=== PATIENT | male | born 1940 ===

== ENCOUNTER 2017-12-09 12:04 | Inpatient (IN) | payer OTHER ==
[~2017-12-09] VITALS: Ht 190.5 cm; Wt 84.0 kg
--- NOTE | 2017-12-09 12:40 | ED SKIN/ALLERGY COMPLAINT ---
History of Present Illness General Chief Complaint: Skin Rash/ Abcess Stated Complaint: CARLOS HAS RASH ALL OVER BODY Source: patient Exam Limitations: no limitations Vital Signs & Intake/Output Vital Signs & Intake/Output Vital Signs Date Time Temp Pulse Resp B/P B/P Pulse O2 O2 Flow FiO2 Mean Ox Delivery Rate 12/09 1540 64 15 135/81 95 Room Air Room Air 12/09 1228 98.7 78 15 104/70 94 Room Air Room Air Allergies Coded Allergies: Sulfa (Sulfonamide Antibiotics) (NICOLE Kelley 12/09/17) Reconcile Medications Allopurinol 100 MG TABLET 1 TAB PO QPM GOUT (Reported) Amlodipine Besylate 5 MG TABLET 1 TAB PO DAILY HEART (Reported) Aspirin (Aspirin*) 81 MG TAB.CHEW 1 TAB PO DAILY HEART HEALTH (Reported) Atenolol 50 MG TABLET 1 TAB PO DAILY HEART (Reported) Cephalexin 500 MG CAPSULE 1 CAP PO BID ANTIBIOTIC, INFECTION (Reported) Folic Acid 1 MG TABLET 1 TAB PO DAILY VITAMIN SUPPORT (Reported) Furosemide (Lasix) 80 MG TABLET 2 TAB PO DAILY WATER RETENTION (Reported) Gabapentin 300 MG CAPSULE 1 CAP PO DAILY NEUROPATHY (Reported) Gabapentin 300 MG CAPSULE 2 CAP PO QPM NEUROPATHY (Reported) Glimepiride (Amaryl) 1 MG TABLET 1 TAB PO DAILY DIABETES (Reported) Lovastatin 20 MG TABLET 1 TAB PO DAILY CHOLESTEROL (Reported) Magnesium Oxide 400 MG TABLET 1 TAB PO BID SUPPLEMENT (Reported) Multivit-Min/FA/Lycopen/Lutein (Centrum Silver Men Tablet) 300 MCG-600 MCG-300 MCG TABLET 1 TAB PO DAILY VITAMIN SUPPORT (Reported) Omeprazole 40 MG CAPSULE.DR 1 CAP PO QPM GI (Reported) Potassium Chloride 10 MEQ TAB.ER.PRT 1 TAB PO DAILY SUPPLEMENT (Reported) Temazepam 30 MG CAPSULE 1 CAP PO QPM SLEEP (Reported) Triage Note: PT TO ED FOR FULL BODY RASH X A COUPLE OF DAYS. WAS GIVEN KEFLEX AND A SALVE WITHOUT RELIEF. REDNESS AND RAISED BUMPS TO FULL BODY. DENIES NEW SOAPS, DETERGENT, ETC. Triage Nurses Notes Reviewed? yes Onset: Gradual Duration: getting worse Timing: recent history Severity: moderate Severity Numbers: 5 HPI: Patient is a 77-year-old male with a past medical history of hypertension hyperlipidemia, peripheral neuropathy, CKD who presents emergency room with concerns of a 3 week history that began in his right lower leg were the rash began to expand on his foot and up his legs in the past week the rash has now worsened to his entire body where he is complaining itching and irritation to his torso region however he states that due to his peripheral neuropathy he has no symptoms of itching or pain. Patient was given Keflex earlier this week with no improvement of symptoms. Denies any fever chills tongue swelling lip swelling difficulty breathing swallowing or cough. (Duarte Patel) Past History Travel History Traveled to [place] past 21 day No Medical History Any Pertinent Medical History? see below for history Neurological: NEUROPATHY Cardiovascular: hypertension, hyperlipidemia, ?PVD Respiratory: NONE Gastrointestinal: GERD Hepatic: NONE Renal: NONE Musculoskeletal: NONE Blood Disorders: NONE Cancer(s): NONE Surgical History Surgical History: non-contributory Psychosocial History What is your primary language Mosotho Tobacco Use: Quit >30 days ago Family History Hx Contributory? No (Duarte Patel) Review of Systems Review of Systems Constitutional: Reports: no symptoms. EENTM: Reports: no symptoms. Respiratory: Reports: no symptoms. Cardiovascular: Reports: no symptoms. GI: Reports: no symptoms. Genitourinary: Reports: no symptoms. Musculoskeletal: Reports: no symptoms. Skin: Reports: see HPI, rash. Neurological/Psychological: Reports: no symptoms. Hematologic/Endocrine: Reports: no symptoms. Immunologic/Allergic: Reports: no symptoms. All Other Systems: Reviewed and Negative (Duarte Patel) Physical Exam Physical Exam General Appearance: no apparent distress, alert, comfortable Head: atraumatic Eyes: Bilateral: normal appearance, PERRL, EOMI. Ears, Nose, Throat: normal pharynx, normal ENT inspection Respiratory: normal breath sounds, chest non-tender Cardiovascular: regular rate/rhythm Gastrointestinal: normal bowel sounds, non-tender Extremities: normal range of motion, no edema Skin: intact Lymphatic: no anterior cervical celio Diagram Body: 1) Noted circumferential mildly raised erythematous warm rash 2) Noted scattered erythematous maculopapule rash to patient's extremities and torso (Duarte Patel) Progress Differential Diagnosis: abscess/cellulitis, allergic reaction, anaphylaxis, angioedema, contact dermatitis, drug reaction, erythema multiforme, lyme disease , meningitis/sepsis, piyriasis rosea, RMSF, scarlet fever, shingles, syphilis/ gonococcemia, urticaria Plan of Care: Orders Procedure Date/time Status CBC WITHOUT DIFFERENTIAL 12/10 06 Active BASIC ELECTROLYTES PLUS BUN&CR 12/10 06 Active Heart Healthy Diet 12/09 D Active US-RENAL/KIDNEY 12/09 1529 Active CULTURE,URINE 12/09 1529 Active URINE LYTES, SPOT 12/09 1529 Active URINALYSIS 12/09 1529 Active Pathway - chart 12/09 1514 Active Vital Signs 12/09 1514 Active Intake & Output 12/09 1514 Active Intake & Output 12/09 1438 Active ED Holding Orders 12/09 1416 Active Admit to inpatient 12/09 1416 Active Vital Signs 12/09 1416 Active Code Status 12/09 1416 Active Patient Data 12/09 1412 Active Add-on Test (ER Only) 12/09 1355 Active BLOOD CULTURE 12/09 1343 Active EKG 12/09 1343 Active LACTIC ACID 12/09 1251 Active WESTERGREN SED RATE 12/09 1240 Complete C-REACTIVE PROTEIN 12/09 1240 Active CBC WITHOUT DIFFERENTIAL 12/09 1240 Complete BASIC METABOLIC PANEL 12/09 1240 Active House Staff 12/09 UNK Active Lab Add-on Test 12/09 UNK Active Current Medications Sig/Chucky Start time Last Medication Dose Stop Time Status Admin Amlodipine Besylate 5 MG DAILY 12/10 09 AC (Norvasc) Aspirin 81 MG DAILY 12/10 09 AC (Aspirin) Atenolol 50 MG DAILY 12/10 09 AC (Tenormin) Folic Acid 1 MG DAILY 12/10 09 AC (Folic Acid) Gabapentin 300 MG DAILY 12/10 09 AC (Neurontin) Potassium Chloride 10 MEQ DAILY 12/10 09 AC (K-Dur) Omeprazole 40 MG DAILY AC 12/10 07 AC (Prilosec) Heparin Sodium 5,000 UNIT Q8 12/09 2199 UNVr (Porcine) Allopurinol 100 MG QPM 12/09 2099 AC (Zyloprim) Gabapentin 600 MG QPM 12/09 2099 AC (Neurontin) Magnesium Oxide 400 MG BID 12/09 2099 AC (Mag-Ox) Atorvastatin Calcium 5 MG 1700 12/09 1700 AC (Lipitor) Diphenhydramine HCl 1 ABEL DAILY 12/09 1530 AC (Benadryl) Temazepam 15 MG AT BEDTIME NEED.. 12/09 1530 AC (Restoril) Acetaminophen 650 MG Q6P PRN 12/09 1515 AC (Tylenol) Acetaminophen 1,000 MG Q6 PRN 12/09 1515 AC (Ofirmev) Sodium Chloride 1,000 ML Q13H 12/09 1515 AC (Normal Saline 0.9%) Laboratory Tests 12/09/17 1251: Anion Gap 15, Estimated GFR 13 L, BUN/Creatinine Ratio 15.3, Glucose 197 H, Lactic Acid Pending, Calcium 9.0, C-Reactive Prot, Quant 4.8 H, CBC w Diff MAN DIFF ORDERED, RBC 4.30 L, MCV 97.1 H, MCH 32.1 H, MCHC 33.0, RDW 14.9 H, MPV 8.9, Gran % 88.4 H, Lymphocytes % 4.8 L, Monocytes % 1.5 L, Eosinophils % 5.3 H, Basophils % 0, Absolute Granulocytes 18.4 H, Segmented Neutrophils 79 H, Band Neutrophils 7 H, Absolute Lymphocytes 1.0 L, Lymphocytes 5 L, Monocytes 2, Absolute Monocytes 0.3, Eosinophils 7 H, Absolute Eosinophils 1.1, Absolute Basophils 0, Platelet Estimate ADEQUATE, Normocytic RBCs VERIFIED, Normochromic RBCs VERIFIED, ESR Westergren 41 H Microbiology 12/09 1529 URINE ROUT: Urine Culture - ORD 12/09 1459 BLOOD: Blood Culture - RECD 12/09 1447 BLOOD: Blood Culture - RECD Differential diagnosis includes lupus vasculitis On initial examination patient shows no signs of anaphylaxis or angioedema patient was complaining of mild itching irritation to torso region where the rash is where it was initial concern of allergic reaction patient was given prednisone initially however labs indicate the patient has a 20,000 white blood cell count bandemia and renal failure, is noted through patient's old records that his baseline creatinine function is approximately 3. Discussed admission with patient who agrees and has no questions patient was given IV fluids and prophylactic antibiotics Initial ED EKG: normal QRS complex, normal sinus rhythm, 66 BPM, NSR (Duarte Patel) ED Sepsis Exam Date of Focused Sepsis Exam: 12/09/17 Time of Focused Sepsis Exam: 1407 Sepsis Cardiac Exam: Regular Rate/Rhythm Sepsis Resp Exam: CTA Sepsis Cap Refill Exam: <2 Sec Sepsis Peripheral Pulse Exam: Normal Sepsis Peripheral Pulse Location: Radial Sepsis Skin Color Exam: RASH NOTED Skin Temp/Moisture Exam: Warm/Dry (Duarte Patel) Departure Departure Disposition: STILL A PATIENT Condition: Stable Clinical Impression Primary Impression: Acute on chronic renal failure Secondary Impressions: Allergic reaction, Bandemia, Sepsis, Skin rash Departure Forms: Customer Survey General Discharge Information Admission Note Spoke With: Klaus Vazquez MD Documentation of Exam: Documentation of any treatments & extenuating circumstances including Concerns Regarding Discharge (functional status, medication knowledge or non-compliance, living conditions, etc.) that warrant an admission rather than observation: [ Patient requires IV fluids kidney ultrasound nephrology consultation and infectious disease consultation IV antibiotics blood cultures pending repeat labs ] (Duarte Patel) PA/PHOTOENGRAVING PROOFER Co-Sign Statement Statement: ED Attending supervision documentation- [X] I saw and evaluated the patient. I have also reviewed all the pertinent lab results and diagnostic results. I agree with the findings and the plan of care as documented in the PA's/PHOTOENGRAVING PROOFER's documentation. [X] I have reviewed the ED Record and agree with the PA's/PHOTOENGRAVING PROOFER's documentation. [] Additions or exceptions (if any) to the PAs/PHOTOENGRAVING PROOFER's note and plan are summarized below: [Patient found to have a vasculitic rash and is also an acute on chronic renal failure. Unsure if this is a penicillin rash or vasculitis. Patient will need admission to the hospital, IV fluids, renal consultation, biopsy] (Jignesh CHATMAN,Marito Vail) Critical Care Note Critical Care Note Critical Care Time: 30-74 min (Duarte Patel)
[2017-12-09 13:11] LABS: ABSOLUTE BASOPHIL COUNT 0 /CUMM (0.0-0.2); ABSOLUTE EOSINOPHIL COUNT 1.1 /CUMM (0.0-0.7); ABSOLUTE GRANULOCYTE CT 18.4 /CUMM (1.4-6.5); ABSOLUTE MONOCYTE COUNT 0.3 /CUMM (0.10-0.60); BASOPHIL % 0 % (0.0-2.0); EOSINOPHIL % 5.3 % (0-5); GRANULOCYTE % 88.4 % (42.2-75.2); HEMATOCRIT 41.7 % (42-52); MEAN CORPUSCULAR HGB 32.1 PG (27.0-31.0); MEAN CORPUSCULAR VOLUME 97.1 FL (80.0-94.0); MEAN PLATELET VOLUME 8.9 FL (7.4-10.4); PLATELET COUNT 191 /CUMM (130-400); RBC DISTRIBUTION WIDTH 14.9 % (11.5-14.5); WHITE BLOOD CELL COUNT 20.8 /CUMM (4.8-10.8)
--- NOTE | 2017-12-09 14:21 | History & Physical ---
Farshad Almonte 12/09/17 1421: General Information and HPI MD Statement: I have seen and personally examined MAGALY SAWYER and documented this H&P. The patient is a 77 year old M who presented with a patient stated chief complaint of rash, and incedental finding of NEVAEH. Source of Information: patient, old records History of Present Illness: 77 year old male with PMH of htn, hld, gout, peripheral neuropathy and CKD presents to the ED for lower extremity rash now extending onto torso of duration one month, and on laboratory testing found to have acute on chronic kidney disease. The patient says the rash started on his right lower extremity, and has subsequently spread up to his back/torso, and is also no bilateral on his lower extremity. The rash on his lower extremities is unfelt due to peripheral neuropathy, but the patient states that the rash on his torso and back is pruritic. Patient denies chills, fevers, weight loss, night sweats, SOB, chest pain, difficulty breathing, abdominal pain, or changes in bowel or bladder habits. No exposures to new soaps, detergents, or insects that the patient is aware of. The patient was given Keflex earlier this week with no improvement of symptoms. Allergies/Medications Allergies: Coded Allergies: Sulfa (Sulfonamide Antibiotics) (NICOLE Kelley 12/09/17) Home Med list Allopurinol 100 MG TABLET 1 TAB PO QPM GOUT (Reported) Amlodipine Besylate 5 MG TABLET 1 TAB PO DAILY HEART (Reported) Aspirin (Aspirin*) 81 MG TAB.CHEW 1 TAB PO DAILY HEART HEALTH (Reported) Atenolol 50 MG TABLET 1 TAB PO DAILY HEART (Reported) Cephalexin 500 MG CAPSULE 1 CAP PO BID ANTIBIOTIC, INFECTION (Reported) Folic Acid 1 MG TABLET 1 TAB PO DAILY VITAMIN SUPPORT (Reported) Furosemide (Lasix) 80 MG TABLET 2 TAB PO DAILY WATER RETENTION (Reported) Gabapentin 300 MG CAPSULE 1 CAP PO DAILY NEUROPATHY (Reported) Gabapentin 300 MG CAPSULE 2 CAP PO QPM NEUROPATHY (Reported) Glimepiride (Amaryl) 1 MG TABLET 1 TAB PO DAILY DIABETES (Reported) Lovastatin 20 MG TABLET 1 TAB PO DAILY CHOLESTEROL (Reported) Magnesium Oxide 400 MG TABLET 1 TAB PO BID SUPPLEMENT (Reported) Multivit-Min/FA/Lycopen/Lutein (Centrum Silver Men Tablet) 300 MCG-600 MCG-300 MCG TABLET 1 TAB PO DAILY VITAMIN SUPPORT (Reported) Omeprazole 40 MG CAPSULE.DR 1 CAP PO QPM GI (Reported) Potassium Chloride 10 MEQ TAB.ER.PRT 1 TAB PO DAILY SUPPLEMENT (Reported) Temazepam 30 MG CAPSULE 1 CAP PO QPM SLEEP (Reported) Compliance With Home Meds: GOOD (stated by patient) Past History Travel History Traveled to [place] past 21 day No Medical History Neurological: NEUROPATHY Cardiovascular: hypertension, hyperlipidemia, ?PVD Respiratory: NONE Gastrointestinal: GERD Hepatic: NONE Renal: NONE Musculoskeletal: gout Blood Disorders: NONE Cancer(s): NONE Surgical History Surgical History: non-contributory Past Family/Social History Family History Relations & Conditions if any *No pertinent family history Relation not specified Psychosocial History Where do you live? Home Primary Language: Occitan Smoking Status: Former Smoker ETOH Use: denies use (former) Review of Systems Review of Systems Constitutional: Denies: chills, diaphoresis, fever, malaise, weakness, unexplained weight loss. EENTM: Reports: no symptoms. Cardiovascular: Reports: no symptoms. Respiratory: Denies: orthopnea, short of breath, sputum production, stridor, wheezing. GI: Reports: no symptoms. Genitourinary: Reports: no symptoms. Musculoskeletal: Reports: no symptoms. Skin: Reports: see HPI. Neurological/Psychological: Reports: no symptoms. Hematologic/Endocrine: Reports: no symptoms. Immunologic/Allergic: Reports: see HPI. Exam & Diagnostic Data Last 24 Hrs of Vital Signs/I&O Vital Signs Date Time Temp Pulse Resp B/P B/P Pulse O2 O2 Flow FiO2 Mean Ox Delivery Rate 12/09 1650 98.5 64 18 120/76 92 12/09 1540 64 15 135/81 95 Room Air Room Air 12/09 1228 98.7 78 15 104/70 94 Room Air Room Air Intake & Output 12/09 1600 12/09 0800 12/09 0000 Intake Total 0 Output Total Balance 0 Intake, Oral 0 Physical Exam General Appearance Alert, Oriented X3, Cooperative, No Acute Distress Skin dry, erythematous, raised rash on lower extremities, specifically below knee. punctate red lesions ascending up to back and abdomen, not as thickly spaced as on lower extremities Skin Temp/Moisture Exam: Warm/Dry HEENT Atraumatic, PERRLA, EOMI Neck Supple, No JVD, No thryomegaly Lymphatic Axillary nl, Cervical nl Cardiovascular Regular Rate, Normal S1, Normal S2, No Murmurs Lungs Clear to Auscultation, Normal Air Movement Abdomen Soft, No Tenderness, No Hepatospenomegaly Neurological Normal Speech, Strength at 5/5 X4 Ext, Normal Tone, Sensation Intact Extremities No Clubbing, No Cyanosis, No Edema, scaly erythematous rash on lower extremities Vascular Normal Pulses Last 24 Hrs of Labs/Jovi: Laboratory Tests 12/09/171929: Ur Random Creatinine 59.0, Ur Random Sodium 65, Ur Random Potassium 37.8, Fraction Sodium Excret 3.3 H 12/09/17 1815: Lactic Acid 1.8 12/09/17 1529: Urine Color YEL, Urine Clarity CLEAR, Urine pH 6.0, Ur Specific [place] 1.015, Urine Protein 30 H, Urine Ketones NEG, Urine Nitrite NEG, Urine Bilirubin NEG, Urine Urobilinogen 0.2, Ur Leukocyte Esterase TRACE H, Ur Microscopic SEDIMENT EXAMINED, Urine RBC 3-5, Urine WBC 1-3 H, Ur Epithelial Cells FEW, Urine Bacteria FEW H, Urine Hemoglobin TRACE-INTACT H, Urine Glucose NEG 12/09/17 1251: Anion Gap 15, Estimated GFR 13 L, BUN/Creatinine Ratio 15.3, Glucose 197 H, Hemoglobin A1c Pending, Lactic Acid 3.1 H, Calcium 9.0, Phosphorus 4.3, Magnesium 2.8 H, Total Bilirubin 0.4, Direct Bilirubin 0.2, AST 33, ALT 30, Alkaline Phosphatase 50, C-Reactive Prot, Quant 4.8 H, Total Protein 7.3, Albumin 4.0, CBC w Diff MAN DIFF ORDERED, RBC 4.30 L, MCV 97.1 H, MCH 32.1 H, MCHC 33.0, RDW 14.9 H, MPV 8.9, Gran % 88.4 H, Lymphocytes % 4.8 L, Monocytes % 1.5 L, Eosinophils % 5.3 H, Basophils % 0, Absolute Granulocytes 18.4 H, Segmented Neutrophils 79 H, Band Neutrophils 7 H, Absolute Lymphocytes 1.0 L, Lymphocytes 5 L, Monocytes 2, Absolute Monocytes 0.3, Eosinophils 7 H, Absolute Eosinophils 1.1, Absolute Basophils 0, Platelet Estimate ADEQUATE, Normocytic RBCs VERIFIED, Normochromic RBCs VERIFIED, ESR Westergren 41 H Microbiology 12/09 1929 URINE ROUT: Urine Culture - RECD 12/09 1459 BLOOD: Blood Culture - RECD 12/09 1447 BLOOD: Blood Culture - RECD Diagnostic Data EKG Results Sinus rhythm Other Results SERVICE DATE: 12/09/17 EXAM TYPE: US - US-RENAL/KIDNEY IMPRESSION: Small right kidney. No hydronephrosis in either kidney. Renal cortical thickness and echogenicity are normal. 3.0 cm indeterminant hypoechoic lesion in the upper pole the right kidney which could represent a solid mass or complex cyst. Recommend further evaluation with renal mass protocol CT or MRI if renal function allows. Otherwise recommend a follow-up ultrasound in 6 months. Assessment/Plan Assessment: 89-year-old male with past medical history as above comes with generalized rash most pronounced on lower extremities and elevated creatinine suggestive of acute on chronic kidney disease. Patient is admitted to inpatient medical service for rationing KI with broad differential vasculitis, drug reaction, and doubtful cellulitis. Nephrology has been consulted. Send urine electrolytes, renal ultrasound, UA, obtain pancultures admit monitor clinically off antibiotics. Consider ID consult if no improvement. Resume home meds except those which are known to cause drug-induced reactions. Problem list/plan: HPI on CKD stage III secondary to dehydration/infection Leukocytosis, likely reactive Lactic acidosis Chronic medical conditions DVT prophylaxis: Subcu heparin and leg squeeze Heart healthy diet Patient is full code As Ranked By This Provider Problem List: 1. Acute on chronic renal failure 2. Skin rash Core Measures/Misc (02/06) Acute Coronary Syndrome ACS Diagnosis: No Congestive Heart Failure Congestive Heart Failure Diagnosis No Cerebrovascular Accident CVA/TIA Diagnosis: No VTE (View Protocol) VTE Risk Factors Age>40 No Mechanical VTE Prophylaxis d/t N/A MechProphylax Ordered No VTE Pharm Prophylaxis d/t NA PharmProphylax ordered Sepsis (View protocol) Sepsis Present: No If YES complete Sepsis Event Note If YES complete Sepsis Event Note TaylorKlaus 12/09/17 1502: Core Measures/Misc (02/06) Sepsis (View protocol) If YES complete Sepsis Event Note If YES complete Sepsis Event Note Attending MD Review Statement Attending Statement Attending MD Statement: examined this patient, discuss w/resident/PA/MOLD OPERATOR, agreed w/resident/PA/MOLD OPERATOR, discussed with family, reviewed EMR data (avail), discussed with nursing, discussed with case mgmt, reviewed images, amended to note Attending Assessment/Plan: 77 o/m with pmh as above comes with generalised rash and elevated creatinine. Patient c/o itching and is afebrile, Leukocytosis of WBC 20K with bandemia. Patient is admitted to inpatient medical services for rash and NEVAEH with broad differential of vasculitis, drug reaction and doubtful cellulitis. Start IVF, provide supprotive care for rash, 1 dose of steroid if needed. Nephrology consult. Send urine lytes, Renal USG, UA. Obtain pancultures and monitor clinically off antibiotics. Consider ID consult if no improvement. Resume home meds except which are known to cause drug induced reactions. RISS and titrate insulin as needed. gi/dvt prophyalxis full code. SonyMandy Anatoly 12/09/17 1514: Core Measures/Misc (02/06) Sepsis (View protocol) If YES complete Sepsis Event Note If YES complete Sepsis Event Note Resident Review Statement Resident Statement: examined this patient, discussed with university intern, agreed with university intern, discussed with family, reviewed EMR data (avail), discussed with nursing , discussed with case mgmt, reviewed images, amended to note Other Findings: Mr. Sawyer s a 77yo M w/ PMH of CKD stage 3 baseline Cr 3.0 from old record, Gout, peripheral neuropathy, HTN, HLD presented to ER w/ CC of skin rash x >1 week started spotty on BLE and gradually intensified and spread upwards to his whole body. Patient tried outpatient salve from his doctor however no relief. He felt minimal itchiness due to his underlying peripheral neuropathy. During our clinical interaction, patient denied recent travel/sick contacts, fever/lightheadedness/diaphoresis/night sweat/weight change/cough/SOB/Chest Pain /Palpitation/Abdominal pain/bowel movement or urinary abnormality, or other skin /musculoskeletal/neurological/mood disorders, or dietary/appetite change. -Smoking: Denied -Alcohol: non-alcoholic beer -Rec Drugs: denied On admission, Vitals: stable afebrile, BP 104/70, 94% RA Physical exam -Gen.: AO x3, cooperative, no distress, -HEENT: NCAT, PERRL, EOMI, anicteric sclera, moist mucous membranes -Skin: Bilateral BLEs and upper thigh/torso/back scattered erythematous maculopapule rash -Neck: Supple, no JVD, trachea midline, mild accessory respiratory muscle use -Cardio: Normal S1/S2 without significant murmurs/gallops/rubs -Pulmonary: grossly normal air movement w/ clear auscultation -Abdomen: Soft, nontender, nondistended, bowel sounds intact -Neuro: Awake and alert, cranial nerves II through XII grossly intact -Extremity: Normal pulses/capillary refill, no cyanosis/clubbing/edema -CBC: Leukocytosis 20.8, H/H 50.8/41.7, MCV 97, PLT 191, elevated CRP 4.8 -BMP: K5.3, NA 143, CR 4.3 with no baseline urinalysis to -EKG: NSR w/o significant ST-T abnormalities. -Last Echo: none in system -Interventions in ER: Prednisone 60 x 1, NS bolus x 1, Unasyn 3gm x 1 Problem list/Assessment/Hospital Course: #NEVAEH on CKD stage 3 2/2 dehydration/infection #Leukocytosis, likely reactive #Lactic acidosis, w/o SIRS/source of infection #asymptomatic Hyperkalemia w/o EKG change, 2/2 renal insufficiency #PMH of CKD stage 3, Gout, peripheral neuropathy, HTN, HLD - Admit to General Medicine - Vitals per protocol, monitor I&O per protocol. - Continuous IVF w/ bolus x 1 and then 150cc/hr - Continue home meds, except holding Lasix and oral hypoglycemics. - Restart lasix per nephrology - pending nephrology consult in the AM - Patient had been afebrile over the past week with the rash. No signs of infection/toxic symptoms. Received 1 dose of unasyn in ER. Would monitor off ABx. - would start Topical benadryl cream for skin itchiness. - Pending blood/urine cultures - Renal U/S to rule out obstructions. - Pain per pathway. DVT prophylaxis Pharm PPX + ALPS Heart Healthy Diet IV Access: Peripheral IV Full Code
[2017-12-09] MEDS ORDERED: AMARYL1 M1 PO (14:26)
[2017-12-09] MEDS ORDERED: AMLODIPINE BESYL5 M1 PO (14:27)
[2017-12-09] MEDS ORDERED: ATENOLOL50 M1 PO (14:27)
[2017-12-09] MEDS ORDERED: FOLIC ACID1 M1 PO (14:27)
[2017-12-09] MEDS ORDERED: LASIX80 M1 PO (14:28)
[2017-12-09] MEDS ORDERED: CENTRUM SILVER1 EAC4 PO (14:28)
[2017-12-09] MEDS ORDERED: GABAPENTIN300 M2 PO ×2 (14:29→14:30)
[2017-12-09] MEDS ORDERED: MAGNESIUM OXID400 M1 PO (14:29)
[2017-12-09] MEDS ORDERED: POTASSIUM CHLO10 ME5 PO (14:29)
[2017-12-09] MEDS ORDERED: LOVASTATIN20 M1 PO (14:30)
[2017-12-09] MEDS ORDERED: ALLOPURINOL100 M1 PO (14:30)
[2017-12-09] MEDS ORDERED: OMEPRAZOLE40 M1 PO (14:31)
[2017-12-09] MEDS ORDERED: ASPIRIN81 M4 PO (14:31)
[2017-12-09] MEDS ORDERED: TEMAZEPAM30 M1 PO (14:31)
[2017-12-09] MEDS ORDERED: CEPHALEXIN500 M3 PO (14:32)
--- NOTE | 2017-12-09 16:48 | ULTRASOUND REPORT ---
EXAMINATION: US RETROPERITONEAL COMPLETE (RENAL) CLINICAL INFORMATION: Acute kidney injury on chronic kidney disease. COMPARISON: None TECHNIQUE: Real-time imaging of the kidneys and bladder. FINDINGS: RIGHT KIDNEY: 9.4 x 4.4 x 4.5 cm (SAG x AP x TRV). The kidney is small. The cortex is normal in thickness and echogenicity. There is a hypoechoic lesion measuring 3.0 x 2.4 x 2.6 cm which is avascular and could represent a solid mass versus a complex cyst. This will require further evaluation. No hydronephrosis. LEFT KIDNEY: 11.5 x 5.7 x 4.4 cm (SAG x AP x TRV). The kidney is normal in size. The cortex is normal in thickness and echogenicity. There are multiple small simple cysts. No hydronephrosis. BLADDER: Well-distended and normal. Bilateral ureteral jets are demonstrated. Prevoid bladder volume is 207 mL. Postvoid bladder volume was not obtained as the patient was sleeping. The prostate measures 3.2 x 3.4 x 4.2 cm. IMPRESSION: Small right kidney. No hydronephrosis in either kidney. Renal cortical thickness and echogenicity are normal. 3.0 cm indeterminant hypoechoic lesion in the upper pole the right kidney which could represent a solid mass or complex cyst. Recommend further evaluation with renal mass protocol CT or MRI if renal function allows. Otherwise recommend a follow-up ultrasound in 6 months.
[2017-12-09 16:50] VITALS: BP 120/76
--- NOTE | 2017-12-09 21:31 | Cons- Nephrology ---
General Information and HPI Consulting Request Date of Consult: 12/09/17 Requested By: Klaus Vazquez MD Reason for Consult: NEVAEH Source of Information: patient Exam Limitations: poor historian History of Present Illness: The patient is a 77-year-old man with past medical history most significant for reported COPD with a baseline creatinine approximately 2 or 3, hypertension, diabetes, gout, unclear hematologic diagnosis who presents with a rash. The patient is not a great historian. He sees a [employer] special agent Dr. Goldberg. He is not sure exactly why his kidney disease. In fact, he didn't even know that he had diabetes and totally pointed out that he was on glimepiride. He thinks that his creatinine may be 2 but it has been reported that may be 3. He is coming in because of a rash started earlier this month. Clarke on his right lower extremity. It is not painful. He had no systemic symptoms. He went to see his physician earlier this week who prescribed cephalexin. Yesterday, he noticed a rash develop on his chest and back which is itchy. The rash on his legs has not gotten any better. As result, he came into the emergency room. As part of his workup, he has found to have a creatinine 4.3, with blood cell count 20.8 with 5.3% eosinophils. Urinalysis with 30mg per deciliter protein, 3 -5 red blood cells and 1-3 white blood cells. Renal ultrasound without any hydronephrosis. He was given IV fluid, Unasyn, 60 mg prednisone. Note that the patient denies any NSAID use or difficulties urinating. He does not remember ever being told that he had hematuria or proteinuria in the past. Allergies/Medications Allergies: Coded Allergies: Sulfa (Sulfonamide Antibiotics) (Allie NICOLE 12/09/17) Home Med List: Allopurinol 100 MG TABLET 1 TAB PO QPM GOUT (Reported) Amlodipine Besylate 5 MG TABLET 1 TAB PO DAILY HEART (Reported) Aspirin (Aspirin*) 81 MG TAB.CHEW 1 TAB PO DAILY HEART HEALTH (Reported) Atenolol 50 MG TABLET 1 TAB PO DAILY HEART (Reported) Cephalexin 500 MG CAPSULE 1 CAP PO BID ANTIBIOTIC, INFECTION (Reported) Folic Acid 1 MG TABLET 1 TAB PO DAILY VITAMIN SUPPORT (Reported) Furosemide (Lasix) 80 MG TABLET 2 TAB PO DAILY WATER RETENTION (Reported) Gabapentin 300 MG CAPSULE 1 CAP PO DAILY NEUROPATHY (Reported) Gabapentin 300 MG CAPSULE 2 CAP PO QPM NEUROPATHY (Reported) Glimepiride (Amaryl) 1 MG TABLET 1 TAB PO DAILY DIABETES (Reported) Lovastatin 20 MG TABLET 1 TAB PO DAILY CHOLESTEROL (Reported) Magnesium Oxide 400 MG TABLET 1 TAB PO BID SUPPLEMENT (Reported) Multivit-Min/FA/Lycopen/Lutein (Centrum Silver Men Tablet) 300 MCG-600 MCG-300 MCG TABLET 1 TAB PO DAILY VITAMIN SUPPORT (Reported) Omeprazole 40 MG CAPSULE.DR 1 CAP PO QPM GI (Reported) Potassium Chloride 10 MEQ TAB.ER.PRT 1 TAB PO DAILY SUPPLEMENT (Reported) Temazepam 30 MG CAPSULE 1 CAP PO QPM SLEEP (Reported) Current Medications: Current Medications Sig/Chucky Start time Last Medication Dose Route Stop Time Status Admin Acetaminophen 650 MG Q6P PRN 12/09 1515 AC PO Acetaminophen 1,000 MG Q6 PRN 12/09 1515 AC IV Allopurinol 100 MG QPM 12/09 2100 AC PO Amlodipine Besylate 5 MG DAILY 12/10 09 AC PO Ampicillin Sodium/ 0 .STK-MED ONE 12/09 1454 DC Sulbactam Sodium .ROUTE Ampicillin Sodium/ 3,000 MG ONCE ONE 12/09 1430 DC 12/09 Sulbactam Sodium IV 12/09 1459 1508 Sodium Chloride 100 ML Aspirin 81 MG DAILY 12/10 0900 AC PO Atenolol 50 MG DAILY 12/10 0900 AC PO Atorvastatin Calcium 5 MG 1700 12/09 1700 AC 12/09 PO 1833 Diphenhydramine HCl 1 ABEL DAILY 12/09 1530 AC TOP Folic Acid 1 MG DAILY 12/10 0900 AC PO Gabapentin 300 MG DAILY 12/10 0900 AC PO Gabapentin 600 MG QPM 12/09 2100 AC PO Heparin Sodium 5,000 UNIT Q8 12/09 2200 AC (Porcine) SC Magnesium Oxide 400 MG BID 12/09 2100 AC PO Omeprazole 40 MG DAILY AC 12/10 07 AC PO Potassium Chloride 10 MEQ DAILY 12/10 0900 AC PO Prednisone 0 .STK-MED ONE 12/09 1247 DC PO Prednisone 0 .STK-MED ONE 12/09 1247 DC PO Prednisone 60 MG ONCE ONE 12/09 1245 DC 12/09 PO 12/09 1246 1244 Sodium Chloride 1,000 ML Q13H 12/09 1515 AC 12/09 IV 1832 Sodium Chloride 1,000 ML BOLUS ONE 12/09 1415 DC 12/09 IV 12/09 1514 1502 Temazepam 15 MG AT BEDTIME NEED.. 12/09 1530 AC PO Review of Systems Review of Systems: Complete 14 point ROS neg except as per HPI Past History Travel History Traveled to [place] past 21 day No Medical History Blood Transfusion Hx: No Neurological: NEUROPATHY EENT: allergies, cataracts Cardiovascular: hypertension, hyperlipidemia, ?PVD Respiratory: NONE Gastrointestinal: GERD Hepatic: NONE Renal: NONE Musculoskeletal: NONE Psychiatric: NONE Endocrine: NONE Blood Disorders: NONE Cancer(s): NONE Surgical History Surgical History: non-contributory Psychosocial History Where Do You Live? Home Smoking Status: Former Smoker Exam & Diagnostic Data Vital Signs and I&O Vital Signs Date Time Temp Pulse Resp B/P B/P Pulse O2 O2 Flow FiO2 Mean Ox Delivery Rate 12/09 1650 98.5 64 18 120/76 92 12/09 1540 64 15 135/81 95 Room Air Room Air 12/09 1228 98.7 78 15 104/70 94 Room Air Room Air Intake & Output 12/09 1600 12/09 0400 12/08 1600 12/08 0400 12/07 1600 12/07 0400 Intake Total 0 Output Total Balance 0 Intake, Oral 0 Physical Exam: Gen - NAD Head - NCAT Eyes - anicteric sclera, EOMI Neck - supple, no LAD CV - RRR, no m/r/g Chest - clear, no w/r/r Abd - soft, NTND Upper ext - warm, no edema Lower ext - warm, no edema Skin - purpuric rash on shins, "allergic" appearing rash on chest/back Neuro - AOX3, grossly nonfocal Results Pertinent Lab Results: Laboratory Tests 12/09 12/09 12/09 1930 1815 1529 Chemistry Lactic Acid (0.7 - 2.1 mmol/L) 1.8 Urines Urine Color (YEL,AMB,STR) YEL Urine Clarity (CLEAR) CLEAR Urine pH (5.0 - 8.0) 6.0 Ur Specific [place] (1.001 - 1.035) 1.015 Urine Protein (NEG,<30 MG/DL) 30 H Urine Ketones (NEG) NEG Urine Nitrite (NEG) NEG Urine Bilirubin (NEG) NEG Urine Urobilinogen (0.1 - 1.0 EU/dl) 0.2 Ur Leukocyte Esterase (NEG) TRACE H Ur Microscopic SEDIMENT EXAMINED Urine RBC (0 - 5 /HPF) 3-5 Urine WBC (0 - 2 /HPF) 1-3 H Ur Epithelial Cells (NONE,FEW) FEW Urine Bacteria (NEG/NONE) FEW H Urine Hemoglobin (NEG) TRACE-INTACT H Ur Random Creatinine (mg/dL) 59.0 Ur Random Sodium (30 - 90 mmol/L) 65 Ur Random Potassium (mmol/L) 37.8 Fraction Sodium Excret (<1% %) 3.3 H Urine Glucose (N MG/DL) NEG 12/09 1251 Chemistry Sodium (137 - 145 mmol/L) 143 Potassium (3.5 - 5.1 mmol/L) 5.3 H Chloride (98 - 107 mmol/L) 102 Carbon Dioxide (22 - 30 mmol/L) 26 Anion Gap (5 - 16) 15 BUN (9 - 20 mg/dL) 66 H Creatinine (0.7 - 1.2 mg/dL) 4.3 H Estimated GFR (>60 ml/min) 13 L BUN/Creatinine Ratio (7 - 25 %) 15.3 Glucose (65 - 99 mg/dL) 197 H Hemoglobin A1c (4.2 - 5.8 %) Pending Lactic Acid (0.7 - 2.1 mmol/L) 3.1 H Calcium (8.4 - 10.2 mg/dL) 9.0 Phosphorus (2.5 - 4.5 mg/dL) 4.3 Magnesium (1.6 - 2.3 mg/dL) 2.8 H Total Bilirubin (0.2 - 1.3 mg/dL) 0.4 Direct Bilirubin (< 0.4 mg/dL) 0.2 AST (17 - 59 U/L) 33 ALT (21 - 72 U/L) 30 Alkaline Phosphatase (< 127 U/L) 50 C-Reactive Prot, Quant (<1.0 mg/dL) 4.8 H Total Protein (6.3 - 8.2 g/dL) 7.3 Albumin (3.5 - 5.0 g/dL) 4.0 Hematology CBC w Diff MAN DIFF ORDERED WBC (4.8 - 10.8 /CUMM) 20.8 H RBC (4.70 - 6.10 /CUMM) 4.30 L Hgb (14.0 - 18.0 G/DL) 13.8 L Hct (42 - 52 %) 41.7 L MCV (80.0 - 94.0 FL) 97.1 H MCH (27.0 - 31.0 PG) 32.1 H MCHC (33.0 - 37.0 G/DL) 33.0 RDW (11.5 - 14.5 %) 14.9 H Plt Count (130 - 400 /CUMM) 191 MPV (7.4 - 10.4 FL) 8.9 Gran % (42.2 - 75.2 %) 88.4 H Lymphocytes % (20.5 - 51.1 %) 4.8 L Monocytes % (1.7 - 9.3 %) 1.5 L Eosinophils % (0 - 5 %) 5.3 H Basophils % (0.0 - 2.0 %) 0 Absolute Granulocytes (1.4 - 6.5 /CUMM) 18.4 H Segmented Neutrophils (42.2 - 75.2 %) 79 H Band Neutrophils (0.0 - 5.0 %) 7 H Absolute Lymphocytes (1.2 - 3.4 /CUMM) 1.0 L Lymphocytes (20.5 - 51.1 %) 5 L Monocytes (1.7 - 9.3 %) 2 Absolute Monocytes (0.10 - 0.60 /CUMM) 0.3 Eosinophils (0 - 5.0 %) 7 H Absolute Eosinophils (0.0 - 0.7 /CUMM) 1.1 Absolute Basophils (0.0 - 0.2 /CUMM) 0 Platelet Estimate (ADEQUATE) ADEQUATE Normocytic RBCs VERIFIED Normochromic RBCs VERIFIED ESR Westergren (0 - 10 MM) 41 H Imaging/Other Studies: EXAM TYPE: US - US-RENAL/KIDNEY EXAMINATION: US RETROPERITONEAL COMPLETE (RENAL) CLINICAL INFORMATION: Acute kidney injury on chronic kidney disease. COMPARISON: None TECHNIQUE: Real-time imaging of the kidneys and bladder. FINDINGS: RIGHT KIDNEY: 9.4 x 4.4 x 4.5 cm (SAG x AP x TRV). The kidney is small. The cortex is normal in thickness and echogenicity. There is a hypoechoic lesion measuring 3.0 x 2.4 x 2.6 cm which is avascular and could represent a solid mass versus a complex cyst. This will require further evaluation. No hydronephrosis. LEFT KIDNEY: 11.5 x 5.7 x 4.4 cm (SAG x AP x TRV). The kidney is normal in size. The cortex is normal in thickness and echogenicity. There are multiple small simple cysts. No hydronephrosis. BLADDER: Well-distended and normal. Bilateral ureteral jets are demonstrated. Prevoid bladder volume is 207 mL. Postvoid bladder volume was not obtained as the patient was sleeping. The prostate measures 3.2 x 3.4 x 4.2 cm. IMPRESSION: Small right kidney. No hydronephrosis in either kidney. Renal cortical thickness and echogenicity are normal. 3.0 cm indeterminant hypoechoic lesion in the upper pole the right kidney which could represent a solid mass or complex cyst. Recommend further evaluation with renal mass protocol CT or MRI if renal function allows. Otherwise recommend a follow-up ultrasound in 6 months. Assessment/Plan Assessment/Recommendations Assessment: NEVAEH - Cause not entirely clear. DDx includes IgA vasculitis given rash on legs c/w HSP, acute interstitial nephritis given allergic appearing rash on chest/ back. That being said, UA not overly impressive for protein and/or cells. Does not appear pre-renal (FENa not low either) and no evidence of urinary obstruction. No clear insult that I can tell which may have led to ATN. Has received steroids for the rash which I feel should be continued. Tissue diagnosis (skin would be easiest - also, he is on aspirin so cannot receive a kidney biopsy for at least 5-7 days) would be helpful. CKD - Risk factors of HTN, DM but patient is terrible historian and unable to get a gauge as to how severe either of these have been. Not clear whether or not he actually has a history of vasculitis. Leukocytosis - Should note that he had seen a block cableman in the past - unclear if this was why. Recommendations: -Uprot, UCr -Hold allopurinol -Would label Cephalexin as allergy (and hold med) -Need to touch base with PCP, Materials Engineer to get collateral information -Would hold ASA in case kidney biopsy pursued -Would tentatively plan for skin biopsy next week -Cont prednisone 60mg daily for now Dr. Chi to see tomorrow Please call [phone] with ?'s
[2017-12-09 22:49] VITALS: BP 116/70
[2017-12-10 06:57] VITALS: BP 110/50
--- NOTE | 2017-12-10 07:38 | PN- Housestaff ---
See Addendum Subjective Follow-up For: Rash and incidentally found NEVAEH Complaints: no complaints Subjective: Patient was seen and examined at the bedside. Patient had no acute events overnight, complained only of the light keeping him awake. Patient was very conversant today, and told many stories. States that he is hopeful that a resolution to this problem can be found soon. Review of Systems Constitutional: Reports: no symptoms, see HPI. Objective Last 24 Hrs of Vital Signs/I&O Vital Signs Date Time Temp Pulse Resp B/P B/P Pulse O2 O2 Flow FiO2 Mean Ox Delivery Rate 12/10 0657 98.0 64 18 110/50 94 12/09 2249 99.0 64 18 116/70 94 12/09 1650 98.5 64 18 120/76 92 12/09 1540 64 15 135/81 95 Room Air Room Air 12/09 1228 98.7 78 15 104/70 94 Room Air Room Air Intake & Output 12/10 0800 12/10 0000 12/09 1600 Intake Total 400 0 Output Total Balance 400 0 Intake, IV 300 Intake, Oral 100 0 Patient 185 lb 195 lb Weight Physical Exam General Appearance: Alert, Oriented X3, Cooperative, No Acute Distress Skin: dry, erythematous, raised rash on lower extremities, specifically below knees.punctate red lesions ascending up to back and abdomen,not as thickly spaced as on lower extremities Skin Temp/Moisture Exam: Warm/Dry HEENT: Atraumatic, PERRLA, EOMI Neck: Supple, No JVD, No thryomegaly Lymphatic: Axillary nl, Cervical nl Cardiovascular: Regular Rate, Normal S1, Normal S2, No Murmurs Lungs: Clear to Auscultation, Normal Air Movement Abdomen: Normal Bowel Sounds, Soft, No Tenderness, No Hepatospenomegaly Neurological: Normal Speech, Strength at 5/5 X4 Ext, Normal Tone, Sensation Intact Extremities: No Clubbing, No Cyanosis, No Edema, Normal Pulses Vascular: Normal Pulses, Pulses Symmetrical Current Medications: Current Medications Sig/Chucky Start time Last Medication Dose Route Stop Time Status Admin Acetaminophen 650 MG Q6P PRN 12/09 1515 AC PO Acetaminophen 1,000 MG Q6 PRN 12/09 1515 AC IV Allopurinol 100 MG QPM 12/09 2100 AC 12/09 PO 2142 Amlodipine Besylate 5 MG DAILY 12/10 0900 AC PO Ampicillin Sodium/ 0 .STK-MED ONE 12/09 1454 DC Sulbactam Sodium .ROUTE Ampicillin Sodium/ 3,000 MG ONCE ONE 12/09 1430 DC 12/09 Sulbactam Sodium IV 12/09 1459 1508 Sodium Chloride 100 ML Aspirin 81 MG DAILY 12/10 0900 AC PO Atenolol 50 MG DAILY 12/10 0900 AC PO Atorvastatin Calcium 5 MG 1700 12/09 1700 AC 12/09 PO 1833 Diphenhydramine HCl 1 ABEL DAILY 12/09 1530 AC 12/09 TOP 2142 Folic Acid 1 MG DAILY 12/10 0900 AC PO Gabapentin 300 MG DAILY 12/10 09 AC PO Gabapentin 600 MG QPM 12/09 2100 AC 12/09 PO 2142 Heparin Sodium 5,000 UNIT Q8 12/09 2200 AC 12/10 (Porcine) SC 0524 Magnesium Oxide 400 MG BID 12/09 2100 AC 12/09 PO 2142 Omeprazole 40 MG DAILY AC 12/10 0700 AC 12/10 PO 0524 Potassium Chloride 10 MEQ DAILY 12/10 0900 AC PO Prednisone 0 .STK-MED ONE 12/09 1247 DC PO Prednisone 0 .STK-MED ONE 12/09 1247 DC PO Prednisone 60 MG ONCE ONE 12/09 1245 DC 12/09 PO 12/09 1246 1244 Sodium Chloride 1,000 ML Q13H 12/09 1515 AC 12/10 IV 0525 Sodium Chloride 1,000 ML BOLUS ONE 12/09 1415 DC 12/09 IV 12/09 1514 1502 Temazepam 15 MG AT BEDTIME NEED.. 12/09 1530 AC PO Last 24 Hrs of Lab/Jovi Results Last 24 Hrs of Labs/Mics: Laboratory Tests 12/10/17 0657: Sodium Pending, Potassium Pending, Chloride Pending, Carbon Dioxide Pending, Anion Gap Pending, BUN Pending, Creatinine Pending, BUN/Creatinine Ratio Pending , CBC w Diff Pending, WBC Pending, RBC Pending, Hgb Pending, Hct Pending, MCV Pending, MCH Pending, MCHC Pending, RDW Pending, Plt Count Pending, MPV Pending 12/09/17 1930: Ur Random Creatinine 59.0, Ur Random Sodium 65, Ur Random Potassium 37.8, Fraction Sodium Excret 3.3 H 12/09/17 1815: Lactic Acid 1.8 12/09/17 1529: Urine Color YEL, Urine Clarity CLEAR, Urine pH 6.0, Ur Specific [place] 1.015, Urine Protein 30 H, Urine Ketones NEG, Urine Nitrite NEG, Urine Bilirubin NEG, Urine Urobilinogen 0.2, Ur Leukocyte Esterase TRACE H, Ur Microscopic SEDIMENT EXAMINED, Urine RBC 3-5, Urine WBC 1-3 H, Ur Epithelial Cells FEW, Urine Bacteria FEW H, Urine Hemoglobin TRACE-INTACT H, Urine Glucose NEG 12/09/17 1251: Anion Gap 15, Estimated GFR 13 L, BUN/Creatinine Ratio 15.3, Glucose 197 H, Hemoglobin A1c Pending, Lactic Acid 3.1 H, Calcium 9.0, Phosphorus 4.3, Magnesium 2.8 H, Total Bilirubin 0.4, Direct Bilirubin 0.2, AST 33, ALT 30, Alkaline Phosphatase 50, C-Reactive Prot, Quant 4.8 H, Total Protein 7.3, Albumin 4.0, CBC w Diff MAN DIFF ORDERED, RBC 4.30 L, MCV 97.1 H, MCH 32.1 H, MCHC 33.0, RDW 14.9 H, MPV 8.9, Gran % 88.4 H, Lymphocytes % 4.8 L, Monocytes % 1.5 L, Eosinophils % 5.3 H, Basophils % 0, Absolute Granulocytes 18.4 H, Segmented Neutrophils 79 H, Band Neutrophils 7 H, Absolute Lymphocytes 1.0 L, Lymphocytes 5 L, Monocytes 2, Absolute Monocytes 0.3, Eosinophils 7 H, Absolute Eosinophils 1.1, Absolute Basophils 0, Platelet Estimate ADEQUATE, Normocytic RBCs VERIFIED, Normochromic RBCs VERIFIED, ESR Westergren 41 H Microbiology 12/09 1930 URINE ROUT: Urine Culture - RECD 12/09 1459 BLOOD: Blood Culture - RECD 12/09 1447 BLOOD: Blood Culture - RECD Orders EKG Findings: Sinus rhythm Radiology Findings: SERVICE DATE: 12/09/17-1528 EXAM TYPE: US - US-RENAL/KIDNEY IMPRESSION: Small right kidney. No hydronephrosis in either kidney. Renal cortical thickness and echogenicity are normal. 3.0 cm indeterminant hypoechoic lesion in the upper pole the right kidney which could represent a solid mass or complex cyst. Recommend further evaluation with renal mass protocol CT or MRI if renal function allows. Otherwise recommend a follow-up ultrasound in 6 months. Assessment/Plan Assessment: 77-year-old male with past medical history as above comes with generalized rash most pronounced on lower extremities and elevated creatinine suggestive of acute on chronic kidney disease. Patient is admitted to inpatient medical service for rationing KI with broad differential vasculitis, drug reaction, and doubtful cellulitis. Nephrology has been consulted. Send urine electrolytes, renal ultrasound, UA, obtain pancultures admit monitor clinically off antibiotics. Consider ID consult if no improvement. Resume home meds except those which are known to cause drug-induced reactions. Problem list/plan: HPI on CKD stage III secondary to dehydration/infection presence of hypoechoic space Leukocytosis, likely reactive Lactic acidosis Chronic medical conditions DVT prophylaxis: Subcu heparin and leg squeeze Heart healthy diet Patient is full code Problem List: 1. Skin rash 2. Acute on chronic renal failure Pain Ratin Pain Location: none Pain Goal: Remain pain free Pain Plan: none in place Tomorrow's Labs & Rationales: none planned at this time
--- NOTE | 2017-12-10 07:39 | Patient Discharge Instructions ---
Discharge Instructions General Discharge Information Special Instructions: - Please follow up with your primary care physician within 1-2 weeks of discharge. Inform your primary care physician of this admission to [facility]. - Continue your current medications per discharge instructions. - Please watch for these problems: Fever, Chills, Nausea, Vomiting, Shortness of Breath, Productive Cough, Chest Pain/Discomfort, Abdominal Pain, Active Bleeding or Bloody urine/stool. Diet Continue normal diet: Yes Acute Coronary Syndrome Inclusion Criteria At DC or during hospital stay patient has or had the following: ACS DIAGNOSIS No Discharge Core Measures Meds if any: Prescribed or Continued at Discharge Meds if any: NOT Prescribed or Continued at Discharge Congestive Heart Failure Inclusion Criteria At DC or during hospital stay patient has or had the following: CHF DIAGNOSIS No Discharge Core Measures Meds if any: Prescribed or Continued at Discharge Meds if any: NOT Prescribed or Continued at Discharge Cerebrovascular accident Inclusion Criteria At DC or during hospital stay patient has or had the following: CVA/TIA Diagnosis No Discharge Core Measures Meds if any: Prescribed or Continued at Discharge Meds if any: NOT Prescribed or Continued at Discharge Venous thromboembolism Inclusion Criteria VTE Diagnosis No VTE Type NONE VTE Confirmed by (Test) NONE Discharge Core Measures - Per Current guidelines, there needs to be overlap - treatment for the first 5 days of Warfarin therapy. - If discharged on Warfarin prior to 5 days of - overlap therapy, the patient will need to be - assessed for post discharge needs including - *Post discharge parental anticoagulation - *Warfarin and/or parental anticoagulation education - *Follow up date to check INR post discharge At least 5 days overlap therapy as Inpatient No Meds if any: Prescribed or Continued at Discharge Note: Overlap Therapy is Warfarin and Anticoagulant Meds if any: NOT Prescribed or Continued at Discharge
[2017-12-10 08:35] LABS: ABSOLUTE BASOPHIL COUNT 0 /CUMM (0.0-0.2); ABSOLUTE LYMPH COUNT 1.2 /CUMM (1.2-3.4); ABSOLUTE MONOCYTE COUNT 0.9 /CUMM (0.10-0.60); BASOPHIL % 0.1 % (0.0-2.0); EOSINOPHIL % 5.9 % (0-5); GRANULOCYTE % 81.7 % (42.2-75.2); HEMATOCRIT 36.9 % (42-52); MEAN CORPUSCULAR HGB 32.3 PG (27.0-31.0); MEAN CORPUSCULAR HGB CONC 33.5 G/DL (33.0-37.0); MEAN CORPUSCULAR VOLUME 96.5 FL (80.0-94.0); MEAN PLATELET VOLUME 9.7 FL (7.4-10.4); PLATELET COUNT 164 /CUMM (130-400); RBC DISTRIBUTION WIDTH 14.9 % (11.5-14.5); RED BLOOD CELL CT 3.82 /CUMM (4.70-6.10); WHITE BLOOD CELL COUNT 17.2 /CUMM (4.8-10.8)
--- NOTE | 2017-12-10 11:17 | PN- Nephrology ---
Assessment/Plan Nephrology Assessment: 1. 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 Can't r/o background recent GN (? IgA, SLE, or vasculitis) w hx more purpuric leg rash predating but would not explain eosinophilia. Discussed possible renal bx if does not continue to improve. 2. CKD: prob mod- severe, stage 3-4, based on hx; likely due to HTN & ? R sided RVDx w smaller kidney. Need old records re baseline GFR. 3. R renal mass: needs non contrast CT or MR to further define. Suggestion: 1. no beta lactams 2. continue prednisone 60 mg qday 3. check CHIVO, ANCA, C3, C4, SIEP, Cryoglobulins, Hep B & C serologies 4. 24 hr urine prot & Cr 5. obtain old records 6. Derm consult: skin bx lower extremity rash & rash on torso/arms Subjective Subjective: Has had R lower leg purpuric rash for couple months Started on cepalosporin fw presumption of cellulitis per pt ~ 5 days ago developed upper extremity & trso prurutic rash yesterday Claims recent DM only w longer HTN & CKD w ? baseline Cr ~ 2 No uremic sx No SOB Objective Vital Signs and I&Os Vital Signs Date Time Temp Pulse Resp B/P B/P Pulse O2 O2 Flow FiO2 Mean Ox Delivery Rate 12/10 0837 61 118/72 12/10 0837 61 118/72 12/10 0657 98.0 64 18 110/50 94 12/09 2249 99.0 64 18 116/70 94 12/09 1650 98.5 64 18 120/76 92 12/09 1540 64 15 135/81 95 Room Air Room Air 12/09 1228 98.7 78 15 104/70 94 Room Air Room Air Intake & Output 12/10 1600 12/10 0400 12/09 1600 12/09 0400 12/08 1600 12/08 0400 Intake Total 700 400 0 Output Total 350 Balance 350 400 0 Intake, IV 600 300 Intake, Oral 100 100 0 Output, Urine 350 Patient 185 lb 195 lb Weight Physical Exam General Appearance: well developed/nourished, no apparent distress, alert Head: atraumatic, normal appearance Ears, Nose, Throat: normal ENT inspection Neck: normal inspection Respiratory: normal breath sounds, quiet respiration, lungs clear Cardiovascular: regular rate/rhythm Abdomen: soft, non-tender, no organomegaly Extremities: no edema Neurologic/Psychiatric: awake, alert Skin: rash (macular papular torso, arms, l), lower legs more purpuric but nonpalpable Current Medications: Current Medications Sig/Chucky Start time Last Medication Dose Route Stop Time Status Admin Acetaminophen 650 MG Q6P PRN 12/09 1515 AC PO Acetaminophen 1,000 MG Q6 PRN 12/09 1515 AC IV Allopurinol 100 MG QPM 12/09 2100 AC 12/09 PO 2142 Amlodipine Besylate 5 MG DAILY 12/10 0900 AC 12/10 PO 0837 Ampicillin Sodium/ 0 .STK-MED ONE 12/09 1454 DC Sulbactam Sodium .ROUTE Ampicillin Sodium/ 3,000 MG ONCE ONE 12/09 1430 DC 12/09 Sulbactam Sodium IV 12/09 1459 1508 Sodium Chloride 100 ML Aspirin 81 MG DAILY 12/10 0900 DC PO Atenolol 50 MG DAILY 12/10 0900 AC 12/10 PO 0837 Atorvastatin Calcium 5 MG 1700 12/09 1700 AC 12/09 PO 1833 Diphenhydramine HCl 1 ABEL DAILY 12/09 1530 AC 12/10 TOP 0837 Folic Acid 1 MG DAILY 12/10 0900 AC 12/10 PO 0836 Gabapentin 300 MG DAILY 12/10 0900 AC 12/10 PO 0836 Gabapentin 600 MG QPM 12/09 2100 AC 12/09 PO 2142 Heparin Sodium 5,000 UNIT Q8 12/09 2200 AC 12/10 (Porcine) SC 0524 Magnesium Oxide 400 MG BID 12/09 2100 AC 12/10 PO 0836 Omeprazole 40 MG DAILY AC 12/10 0700 AC 12/10 PO 0524 Potassium Chloride 10 MEQ DAILY 12/10 0900 AC 12/10 PO 0836 Prednisone 0 .STK-MED ONE 12/09 1247 DC PO Prednisone 0 .STK-MED ONE 12/09 1247 DC PO Prednisone 60 MG ONCE ONE 12/09 1245 DC 12/09 PO 12/09 1246 1244 Sodium Chloride 1,000 ML Q13H 12/09 1515 AC 12/10 IV 0525 Sodium Chloride 1,000 ML BOLUS ONE 12/09 1415 DC 12/09 IV 12/09 1514 1502 Temazepam 15 MG AT BEDTIME NEED.. 12/09 1530 AC PO Results Pertinent Lab Results: Laboratory Tests 12/10 12/09 12/09 0657 1930 1815 Chemistry Sodium (137 - 145 mmol/L) 141 Potassium (3.5 - 5.1 mmol/L) 4.4 Chloride (98 - 107 mmol/L) 107 Carbon Dioxide (22 - 30 mmol/L) 22 Anion Gap (5 - 16) 12 BUN (9 - 20 mg/dL) 57 H Creatinine (0.7 - 1.2 mg/dL) 3.4 H Estimated GFR (>60 ml/min) 18 L BUN/Creatinine Ratio (7 - 25 %) 16.8 Lactic Acid (0.7 - 2.1 mmol/L) 1.8 Hematology CBC w Diff MAN DIFF ORDERED WBC (4.8 - 10.8 /CUMM) 17.2 H RBC (4.70 - 6.10 /CUMM) 3.82 L Hgb (14.0 - 18.0 G/DL) 12.3 L Hct (42 - 52 %) 36.9 L MCV (80.0 - 94.0 FL) 96.5 H MCH (27.0 - 31.0 PG) 32.3 H MCHC (33.0 - 37.0 G/DL) 33.5 RDW (11.5 - 14.5 %) 14.9 H Plt Count (130 - 400 /CUMM) 164 MPV (7.4 - 10.4 FL) 9.7 Gran % (42.2 - 75.2 %) 81.7 H Lymphocytes % (20.5 - 51.1 %) 7.0 L Monocytes % (1.7 - 9.3 %) 5.3 Eosinophils % (0 - 5 %) 5.9 H Basophils % (0.0 - 2.0 %) 0.1 Absolute Granulocytes (1.4 - 6.5 /CUMM) 14.0 H Segmented Neutrophils (42.2 - 75.2 %) 82 H Band Neutrophils (0.0 - 5.0 %) 7 H Absolute Lymphocytes (1.2 - 3.4 /CUMM) 1.2 Lymphocytes (20.5 - 51.1 %) 4 L Monocytes (1.7 - 9.3 %) 2 Absolute Monocytes (0.10 - 0.60 /CUMM) 0.9 H Eosinophils (0 - 5.0 %) 5 Absolute Eosinophils (0.0 - 0.7 /CUMM) 1.0 Absolute Basophils (0.0 - 0.2 /CUMM) 0 Normocytic RBCs VERIFIED Normochromic RBCs VERIFIED Urines Ur Random Creatinine (mg/dL) 59.0 Ur Random Sodium (30 - 90 mmol/L) 65 Ur Random Potassium (mmol/L) 37.8 Fraction Sodium Excret (<1% %) 3.3 H 12/09 12/09 1529 1251 Chemistry Sodium (137 - 145 mmol/L) 143 Potassium (3.5 - 5.1 mmol/L) 5.3 H Chloride (98 - 107 mmol/L) 102 Carbon Dioxide (22 - 30 mmol/L) 26 Anion Gap (5 - 16) 15 BUN (9 - 20 mg/dL) 66 H Creatinine (0.7 - 1.2 mg/dL) 4.3 H Estimated GFR (>60 ml/min) 13 L BUN/Creatinine Ratio (7 - 25 %) 15.3 Glucose (65 - 99 mg/dL) 197 H Hemoglobin A1c (4.2 - 5.8 %) Pending Lactic Acid (0.7 - 2.1 mmol/L) 3.1 H Calcium (8.4 - 10.2 mg/dL) 9.0 Phosphorus (2.5 - 4.5 mg/dL) 4.3 Magnesium (1.6 - 2.3 mg/dL) 2.8 H Total Bilirubin (0.2 - 1.3 mg/dL) 0.4 Direct Bilirubin (< 0.4 mg/dL) 0.2 AST (17 - 59 U/L) 33 ALT (21 - 72 U/L) 30 Alkaline Phosphatase (< 127 U/L) 50 C-Reactive Prot, Quant (<1.0 mg/dL) 4.8 H Total Protein (6.3 - 8.2 g/dL) 7.3 Albumin (3.5 - 5.0 g/dL) 4.0 Hematology CBC w Diff MAN DIFF ORDERED WBC (4.8 - 10.8 /CUMM) 20.8 H RBC (4.70 - 6.10 /CUMM) 4.30 L Hgb (14.0 - 18.0 G/DL) 13.8 L Hct (42 - 52 %) 41.7 L MCV (80.0 - 94.0 FL) 97.1 H MCH (27.0 - 31.0 PG) 32.1 H MCHC (33.0 - 37.0 G/DL) 33.0 RDW (11.5 - 14.5 %) 14.9 H Plt Count (130 - 400 /CUMM) 191 MPV (7.4 - 10.4 FL) 8.9 Gran % (42.2 - 75.2 %) 88.4 H Lymphocytes % (20.5 - 51.1 %) 4.8 L Monocytes % (1.7 - 9.3 %) 1.5 L Eosinophils % (0 - 5 %) 5.3 H Basophils % (0.0 - 2.0 %) 0 Absolute Granulocytes (1.4 - 6.5 /CUMM) 18.4 H Segmented Neutrophils (42.2 - 75.2 %) 79 H Band Neutrophils (0.0 - 5.0 %) 7 H Absolute Lymphocytes (1.2 - 3.4 /CUMM) 1.0 L Lymphocytes (20.5 - 51.1 %) 5 L Monocytes (1.7 - 9.3 %) 2 Absolute Monocytes (0.10 - 0.60 /CUMM) 0.3 Eosinophils (0 - 5.0 %) 7 H Absolute Eosinophils (0.0 - 0.7 /CUMM) 1.1 Absolute Basophils (0.0 - 0.2 /CUMM) 0 Platelet Estimate (ADEQUATE) ADEQUATE Normocytic RBCs VERIFIED Normochromic RBCs VERIFIED ESR Westergren (0 - 10 MM) 41 H Urines Urine Color (YEL,AMB,STR) YEL Urine Clarity (CLEAR) CLEAR Urine pH (5.0 - 8.0) 6.0 Ur Specific [place] (1.001 - 1.035) 1.015 Urine Protein (NEG,<30 MG/DL) 30 H Urine Ketones (NEG) NEG Urine Nitrite (NEG) NEG Urine Bilirubin (NEG) NEG Urine Urobilinogen (0.1 - 1.0 EU/dl) 0.2 Ur Leukocyte Esterase (NEG) TRACE H Ur Microscopic SEDIMENT EXAMINED Urine RBC (0 - 5 /HPF) 3-5 Urine WBC (0 - 2 /HPF) 1-3 H Ur Epithelial Cells (NONE,FEW) FEW Urine Bacteria (NEG/NONE) FEW H Urine Hemoglobin (NEG) TRACE-INTACT H Urine Glucose (N MG/DL) NEG Imaging/Other Studies: Renal US: RIGHT KIDNEY: 9.4 x 4.4 x 4.5 cm (SAG x AP x TRV). The kidney is small. The cortex is normal in thickness and echogenicity. There is a hypoechoic lesion measuring 3.0 x 2.4 x 2.6 cm which is avascular and could represent a solid mass versus a complex cyst. This will require further evaluation. No hydronephrosis. LEFT KIDNEY: 11.5 x 5.7 x 4.4 cm (SAG x AP x TRV). The kidney is normal in size. The cortex is normal in thickness and echogenicity. There are multiple small simple cysts. No hydronephrosi
[2017-12-10 14:56] VITALS: BP 110/65
--- NOTE | 2017-12-10 17:19 | Event Note ---
Event Note Event Note: Notified by RN patient wishes to leave AMA. I went to see the patient. I sat down and explained his elevated creatinine and leukocytosis with unclear etiology. He is more concerned about his rash despite my explanation. He states he understands all the risks involved, but is unable to get any rest here as it is too bright and loud at night. He states he lives alone and is very sensitive to sounds and light. He acknowledges his need to follow up with his Water Treatment Technician and PCP and establish care with a birdcage assembler. He prefers to do all this on an outpatient basis. He drove himself here and wants to leave [facility]. I again explained this is against medical advice, but will respect his wishes. He signed the AMA form and we will discharge him. Last VS @ 14:56: T98.3 P66 RR20 BP110/65 sat 94%RA Patient in no acute distress. Disseminated macular/papular rash present on trunk and BUE/BLE. Face erythematous
[2017-12-12] MEDS ORDERED: PREDNISONE10 M2 PO (14:07)
== END 2017-12-10 17:32 | disposition left against medical advice (07) | DRG 683 ==
LOC: ERH 12:04 → ERHI 14:16 → ENRESERV 14:40 → ENTRNSPT 15:51 → EDTRNSPT 16:10 → EDTRNSPTSTS 16:10 → 2NA 16:17 → CMPTRNSPT 16:38 → 2NA 12-10 17:32
PROVIDERS: Physician Assistant
DX: N17.9 Acute kidney failure, unspecified (principal); E87.2 Acidosis; E86.0 Dehydration; G62.9 Polyneuropathy, unspecified; I12.9 Hypertensive chronic kidney disease with stage 1 through stage 4 chronic kidney disease, or unspecified chronic kidney disease; N18.4 Chronic kidney disease, stage 4 (severe); M10.9 Gout, unspecified; K21.9 Gastro-esophageal reflux disease without esophagitis; R21 Rash and other nonspecific skin eruption; Z88.2 Allergy status to sulfonamides; Z87.891 Personal history of nicotine dependence
CPT/HCPCS: 2NAP; 84133; 84300; 36415; 36592; 76775; 81001; 82436; 82570; 87040; 87086; 93005; 93010; J0131; J1644; J3490; J7512